=== PATIENT | female | born 1990 | race Caucasian/White ===

== ENCOUNTER 2022-08-16 08:40 | Outpatient (CLI) | payer OTHER, SELFPAY | END 2022-08-16 08:41 | disposition home or self-care (01) | LOC: NFLDREF 20:44 | PROVIDERS: Visit Provider Registered Nurse | DX: Z13.1 Encounter for screening for diabetes mellitus (principal); Z13.6 Encounter for screening for cardiovascular disorders | CPT/HCPCS: 80061; 82947 ==

== ENCOUNTER 2022-12-19 13:58 | Outpatient (CLI) | payer OTHER, SELFPAY ==
--- NOTE | 2022-12-19 14:00 | CRLHL7_ITS ---
For Patients: As a result of the Cures Act, medical imaging exams and procedure reports are released immediately into your electronic medical record. You may view this report before your referring provider. If you have questions, please contact your health care provider. INDICATION: First trimester scan, establish dates. COMPARISON: None. TECHNIQUE: Real-time sanford-scale imaging of the pelvis was performed. FINDINGS: Sonographic imaging demonstrates a single living intrauterine gestation. The embryo demonstrates a regular cardiac rate measuring 180 beats per minute. The embryo`s crown-rump length measurement of 2.1 cm corresponds to a gestational age of 8 weeks 5 days with a sonographic due date of 07/26/2023. There is a normal-appearing yolk sac. There are no gross abnormalities noted within the embryo at this early state of development. The gestational sac has a normal appearance. There is a 1.4 x 0.6 x 0.5 cm perigestational hemorrhage. The amount of fluid within the sac appears appropriate for gestational age. The cervix is closed. The myometrium appears normal. The ovaries are of normal size. Corpus luteal left ovarian cyst. There are no suspicious fluid collections noted in the cul-de-sac. IMPRESSION: Single living intrauterine with sonographic gestational age 8 weeks 5 days and sonographic due date of 07/26/2023. 1.4 x 0.6 x 0.5 cm inferior subchorionic hemorrhage. Dictated by Kenny Heart MD @ 12/20/2022 9:57:43 AM (Electronically Signed)
== END 2022-12-19 13:59 | disposition home or self-care (01) ==
LOC: US 13:59
PROVIDERS: Visit Provider Registered Nurse
DX: Z34.91 Encounter for supervision of normal pregnancy, unspecified, first trimester (principal); O20.9 Hemorrhage in early pregnancy, unspecified; Z3A.08 8 weeks gestation of pregnancy
CPT/HCPCS: 76817; 86703; 86803; 86850; 86900; 86901; 87086; 87340; 87491; 87591

== ENCOUNTER 2022-12-19 15:09 | Outpatient (CLI) | payer OTHER, SELFPAY ==
[2022-12-19 19:04] LABS: Chlamydia DNA Amplified* NOT DETECTED (No Detected); GC DNA Amplified* NOT DETECTED (No Detected)
== END 2022-12-19 15:10 | disposition home or self-care (01) ==
PROVIDERS: Visit Provider Registered Nurse
DX: Z34.90 Encounter for supervision of normal pregnancy, unspecified, unspecified trimester (principal)
CPT/HCPCS: 86592; 86703; 86762; 86787; 86803; 86850; 86900; 86901; 87086; 87340; 87491; 87591

== ENCOUNTER 2023-03-13 12:55 | Outpatient (CLI) | payer OTHER, SELFPAY ==
--- NOTE | 2023-03-13 13:00 | CRLHL7_ITS ---
For Patients: As a result of the Century Cures Act, medical imaging exams and procedure reports are released immediately into your electronic medical record. You may view this report before your referring provider. If you have questions, please contact your health care provider. INDICATION: Evaluate anatomy. COMPARISON: none TECHNIQUE: Real time sanford scale imaging of the fetus was performed as well as color Doppler analysis of the umbilical vessels. FINDINGS: Sonographic imaging demonstrates a single living intrauterine gestation. Fetus demonstrates a regular cardiac rate of 154 beats per minute. Fetus has a breech position. The placenta lies anteriorly without evidence of placenta previa. The edge of the placenta is located 9.3 cm from the internal cervical os. Amniotic fluid volume appears normal. Single deepest vertical pocket: 4.8 cm. The cervix is closed and measures 4.1 cm in length. The composite ultrasound gestational age is calculated at 21 weeks 4 days with an estimated sonographic due date of 07/20/2023. The estimated weight is 449 grams which lies at the 96th %. The following biometric measurements were obtained: Biparietal diameter: 5.2 cm/21 weeks 4 days 86th% Head circumference: 18.7 cm/21 weeks 0 days 63rd% Abdominal circumference: 17.2 cm/22 weeks 1 day 89th% Femur length: 3.6 cm/21 weeks 3 days 72nd% The HC/AC ratio measures: 1.09 range (1.06-1.24) On anatomic survey, there is a normal appearance of the cerebral ventricles, cavum septi pellucidi, cisterna magna and cerebellum. The nose, lips, and facial profile appear normal. The cervical, thoracic and lumbar spine are well visualized and appear normal. There is a normal four-chamber heart view and the left and right ventricular outflow tracts appear normal. The diaphragm and stomach appear normal. The kidneys and bladder also appear normal. Incidental mild bilateral pelviectasis noted measuring less than 4 millimeters considered normal. There is a normal three-vessel cord and cord insertion site. The four extremities appear normal. IMPRESSION: Sonographic gestational age 21 weeks 4 days and sonographic due date of 07/20/2023. Sonographic age 1 week ahead of the clinical age. No intrinsic abnormalities noted on anatomic survey. Estimated weight 96th percentile. Abdominal circumference at the 89th percentile. Dictated by Kenny Heart MD @ 03/14/2023 10:02:52 AM (Electronically Signed)
== END 2023-03-13 12:56 | disposition home or self-care (01) ==
LOC: US 12:56
PROVIDERS: Visit Provider Registered Nurse
DX: Z34.92 Encounter for supervision of normal pregnancy, unspecified, second trimester (principal); Z3A.21 21 weeks gestation of pregnancy
CPT/HCPCS: 76805

== ENCOUNTER 2023-05-08 10:14 | Outpatient (CLI) | payer OTHER, SELFPAY | END 2023-05-08 10:15 | disposition home or self-care (01) | LOC: NFLDREF 05-10 05:57 | PROVIDERS: Visit Provider Obstetrics & Gynecology | DX: Z34.93 Encounter for supervision of normal pregnancy, unspecified, third trimester (principal); Z3A.28 28 weeks gestation of pregnancy | CPT/HCPCS: 86592 ==

== ENCOUNTER 2023-07-01 13:48 | Outpatient (CLI) | payer OTHER, SELFPAY ==
--- NOTE | 2023-07-01 14:00 | US_ITS ---
Final Report Patient: CLARISSA WALTON Facility:?[facility] Patient ID:?[id number] Site Patient ID:?[id number]. Site :?[id number] Study:? OB Pelvis growth check-07/01/2023 2:50:26 PM Ordering Physician:JULITA Final Report: INDICATION: Third trimester scan, evaluate growth. COMPARISON: 03/13/2023 TECHNIQUE: Real time sanford scale imaging of the fetus was performed. FINDINGS: Sonographic imaging demonstrates a single living intrauterine gestation. Fetus demonstrates a regular cardiac rate of 154 beats per minute. Fetus has a vertex position. The placenta lies anteriorly. Amniotic fluid volume appears normal and there is a single deepest vertical pocket: 6.2 cm. The estimated weight is 3901gm which lies at the greater than 97th %. On the prior OB ultrasound exam dated 03/13/2023 the estimated weight was at the 96th%. BPD greater than 97th percentile. HC 92nd percentile. AC greater than 97th percentile. FL is 50th percentile. The HC/AC ratio measures 0.92 range (0.87-1.06). IMPRESSION: Sonographic gestational age 39 weeks 1 day and sonographic due date of 07/07/2023. Sonographic age 20 days ahead of the clinical age. Estimated weight greater than 97th percentile. Abdominal circumference and BPD greater than 97th percentile. Dictated by Kenny Heart MD @ 07/02/2023 8:11:24 AM (Electronic Signature)
== END 2023-07-01 13:49 | disposition home or self-care (01) ==
LOC: US 13:48
PROVIDERS: Visit Provider Obstetrics & Gynecology
DX: Z34.93 Encounter for supervision of normal pregnancy, unspecified, third trimester (principal); O36.63X0 Maternal care for excessive fetal growth, third trimester, not applicable or unspecified; Z3A.39 39 weeks gestation of pregnancy
CPT/HCPCS: 76816; 87081; 87653

== ENCOUNTER 2023-07-19 09:51 | Inpatient (IN) | payer OTHER, SELFPAY ==
[2023-07-19] VITALS (32 sets, daily range): BP systolic 110–136; BP diastolic 65–95; PULSE 82–107; RESP 16–18; TEMP 36.7–38.2; O2SAT 96–98; BMI 31.4
[2023-07-19 10:12] LABS: Basophils Absolute Auto 0.04 K/uL (0.00-0.30); Basophils Percent Auto 0.4 % (0.0-3.0); Eosinophils Absolute Auto 0.01 K/uL (0.00-0.50); Eosinophils Percent Auto 0.1 % (0.0-7.0); Hemoglobin* 13.4 gm/dL (12.0-16.0); Immature Granulocytes Abs Auto 0.04 K/uL (0.00-0.30); Immature Granulocytes Pct Auto 0.4 %; Lymphocytes Percent Auto 13.2 % (20-44); Mean Corpuscular HGB Conc 34 gm/dL (32-36); Mean Corpuscular Hemoglobin 31 pg (26-34); Mean Corpuscular Volume 89 fL (80-100); Monocytes Percent Auto 4.2 % (0.0-11.0); Neutrophils Percent Auto 81.7 % (42.0-72.0); Platelet Count* 177 K/uL (140-440); RDW Coefficient of Variation % 12.1 % (11.5-15.5); Red Blood Count 4.37 m/uL (4.00-5.20); White Blood Count* 10.16 K/uL (4.50-11.00)
--- NOTE | 2023-07-19 10:12 | W.PM.LDBA ---
Subjective History of Present Illness Narrative: Patient is being admitted to Labor and Delivery for repeat delivery. She is a 32 year old at 38 6/7 weeks gestation. Her full history and physical was dictated by Dr. PUENTE on 07/10/23. Please see this for details. Patient presents to L&D due to concerns of painful uterine contractions. She also noticed a bloody show, no watery like discharge. Upon evaluation in the unit patient is found with regular, painful uterine contractions. Cervix found 4cm, in labor. Patient desires to proceed with repeat delivery. Specific Issues/Plans G 2 P 1001 Spouse: Noel. It's a GIRL! H&P by CINDI on 07/10/2023 1. History of delivery due to arrest of dilation. endometritis requiring IV antibiotics. Uncertain whether she desires repeat versus TOLAC. 55% likelihood of success TOLAC consent given for her review 01/16/23 36 week ultrasound: waiting to see what the EFW is. If the baby is large planning RLTCS at 39 weeks. If normal size then still RLTCS but at her due date or later. EFW at 36.2 weeks on 07/01: 3901g which is >97%tile, AC >97%tile. SDP 6.2 cm. Patient opted for repeat CD. Scheduling form filled out on 07/01 2. [id number] Negative. Covid: not vaccinated. Recommended. Flu Vaccine: Declines RSV: Declined on 06/05/23 TDAP: 05/22/2023 OB - Problem Based A/P Additional Plan (1) Previous delivery affecting : Status: Acute (2) : Status: Acute Plan Patient with previous section history, in labor and desiring repeat delivery. Patient had scheduled repeat scheduled for next week, informed consent already signed. Will proceed with delivery at this time. OB Result Labs Labs: CBC pending OB Exam Physical Exam Vital signs: Temp Pulse BP Pulse Ox 98.8 F 93 128/85 97 07/19/23 09:37 07/19/23 09:37 07/19/23 09:37 07/19/23 09:38 Detailed Labor and Delivery Exam Patient Gravid: Yes Dilation (cm): 4 Tachysystole: No Contraction intensity: Strong/Firm Fetus (Single) Station: -3 Amniotic Membrane Status: intact Heart Rate Baseline: 150 Monitor Accelerations: Present Monitor Decelerations: Variable [employer] Variability: Moderate (6-25)
[2023-07-19 10:18] LABS: Slide Review Reflex No
[2023-07-19] MEDS: CEFAZOLIN 2 GM INJ IVP (10:40)
[2023-07-19] MEDS: KETOROLAC 30 MG/ML inj IVP ×3 (10:45→22:53)
--- NOTE | 2023-07-19 10:59 | W.ANESCHARGE ---
Anesthesia Charges Start Date/Time Anesthesia Start Date: 07/19/23 Anesthesia Start Time: 10:30 Stop Date/Time Anesthesia Stop Date: 07/19/23 Anesthesia Stop Time: 12:02 Summary Emergency: MDA
[2023-07-19] MEDS: LACTATED RINGERS 1000 ML 1,000 ML 100 ML IV (11:00)
--- NOTE | 2023-07-19 11:00 | W.PM.NB ---
Nerve Block Nerve Block Time Seen by Provider: 11:52 Date Seen: 07/19/23 Type of block requested by surgeon for post-operative analgesia: TAP Side: bilateral Time out performed: Yes Verification of patient name: Yes Verification of date of : Yes Site marking: site marked Name of person performing procedure: Luis Eduardo Continuous monitoring Was continuous monitoring of O2 sat, B/P, monitor technician, recorded every 15 minutes?: Yes Procedure Checklist: sterile prep, needles and gloves Ultrasound guided. Images saved: Yes Medications given in 5ml increments after negative aspiration: Marcaine %: 0.25 mL: 30 Needle gauge: 20 and Exparel mL: 10 Patient tolerated procedure well: Yes Additional comments: Needle noted between internal oblique and transversus abdominus. Local spread visualized Block Charges Block Charge (with Pro Fee): TAP Bilateral Use of Ultrasound Machine for Block: Yes- US Guidance/pain block
[2023-07-19] MEDS: miSOPROStoL 800 MCG/4 TABLET PR (11:05)
--- NOTE | 2023-07-19 11:41 | PM.OBPRCCS ---
OB Delivery Proc Additional Procedures Tubal Ligation at the time of : No Other: No Procedure Date of procedure: 07/19/23 Pre-op diagnosis: Previous section x1, in labor desiring repeat section Post-op diagnosis: same Procedure Done: Global Will [facility] bill your pro fee for this procedure?: Yes Blood Loss Measurement Type: QBL (454) Bakri Used: No IV fluids (mL): 1,400 Urine Output (mL): 50 Urine Output Comment: concentrated urine Surgeon: Anay Sandy MD Anesthesia Type: Spinal Findings: FINDINGS: Live-born female infant, vertex presentation, Apgars 9 and 9 at 1 and 5 minutes respectively. weight 8 lb 9 oz. Bilateral small 1-2cm in size paratubal cysts. Otherwise grossly normal fallopian tubes and ovaries. Procedure Name: Repeat low transverse section Procedure Description: PROCEDURE: After obtaining informed consent, the patient was taken to the operating room where spinal anesthesia was obtained and found to be adequate. She was prepared and draped in the normal sterile fashion in the dorsal supine position with a leftward tilt. A Pfannenstiel skin incision was made with a scalpel along the line of the patient's previous Pfannenstiel scar. This incision was carried down to the underlying layer of fascia with the scalpel and Bovie. The fascia was incised in the midline and the incision extended laterally. The superior and inferior aspects of the fascial incision were grasped with Gail clamps, elevated and the underlying rectus muscles dissected off sharply and with electrocautery. The rectus muscles were then in the midline. The Pablo O retractor was then placed into the incision. The lower uterine segment was then incised in a transverse fashion with the scalpel. Upon entry into the uterus, clear amniotic fluid was noted. The uterine incision was extended cephalo caudally with blunt finger fractionation. The infant's head was delivered atraumatically, followed by the remainder of the 's body. The nose and mouth were suctioned with the bulb suction. The cord was doubly clamped and cut, after 30 seconds of delayed cord clamping and the infant was handed off the field for evaluation. The placenta was delivered spontaneously with umbilical cord traction and fundal massage. The uterus was cleared of all clots and debris. Uterine tone found to be boggy and treated with IV Oxytocin 30 units and 800mcg of rectal Cytotec. The uterine incision was reapproximated in a running locking fashion with a 0 Vicryl suture. A 2nd layer of the same suture was used to imbricate in horizontal fashion. Hemostasis secured. The gutters were inspected and cleared of blood clots. All instruments and retractors were removed. The anterior peritoneum was reapproximated in a running fashion with a 3-0 Vicryl suture. The subfascial tissues were carefully inspected and hemostasis assured. The fascia was reapproximated in a running fashion with a looped 0 Vicryl suture. The subcutaneous tissues were copiously irrigated. Hemostasis was assured. The subcutaneous fat layer was reapproximated with interrupted sutures of 3-0 Vicryl. The skin was closed in a subcuticular fashion with 4-0 Monocryl. LiquiBand and dressing were applied. The patient tolerated the procedure well. Sponge, lap, needle, and instrument counts were reported as correct x2. The patient was taken to the recovery room, awake, and in stable condition. She did receive 2 grams of IV Ancef preoperatively. Complications: None Pathology: none sent Surgery Debrief Performed: Yes Condition: stable Disposition: floor
--- NOTE | 2023-07-19 12:10 | W.ANESCHARGE ---
Anesthesia Charges Start Date/Time Anesthesia Start Date: 07/19/23 Anesthesia Start Time: 10:30 Stop Date/Time Anesthesia Stop Date: 07/19/23 Anesthesia Stop Time: 12:02 Summary Emergency: MDA
[2023-07-19] MEDS: ACETAMINOPHEN 500 MG TABLET 1000 MG PO ×2 (15:12→21:21)
[2023-07-19] MEDS: AMPICILLIN 2 GM in 0.9 % SODIUM CHLORIDE Mini-bag 100 ML IVPB ×2 (15:13→21:21)
[2023-07-19] MEDS: LACTATED RINGERS 1000 ML 1,000 ML 125 ML IV (15:21)
[2023-07-19] MEDS: CLINDAMYCIN 900 MG/50 ML-D5W 900 MG/50 ML PIGGYBACK 100 MG IVPB ×2 (16:11→23:21)
[2023-07-19] MEDS: SODIUM CHLORIDE 0.9% IVPB (16:43)
[2023-07-19] MEDS: GENTAMICIN IVPB (16:43)
[2023-07-20] VITALS (16 sets, daily range): BP systolic 107–128; BP diastolic 69–81; PULSE 80; RESP 16; TEMP 36.7–36.9; O2SAT 96–97
[2023-07-20] MEDS: AMPICILLIN 2 GM in 0.9 % SODIUM CHLORIDE Mini-bag 100 ML IVPB ×2 (03:20→09:15)
[2023-07-20] MEDS: ACETAMINOPHEN 500 MG TABLET 1000 MG PO ×3 (03:33→15:24)
[2023-07-20] MEDS: KETOROLAC 30 MG/ML inj IVP ×3 (05:15→18:04)
[2023-07-20 06:36] LABS: Hemoglobin* 12.2 gm/dL (12.0-16.0)
[2023-07-20] MEDS: CLINDAMYCIN 900 MG/50 ML-D5W 900 MG/50 ML PIGGYBACK 100 MG IVPB (07:20)
[2023-07-20] MEDS: DOCUSATE SODIUM 100 MG CAPSULE PO (09:15)
--- NOTE | 2023-07-20 10:05 | PM.OBPNVD1 ---
OB - PN:Subj Subjective Date Seen: 07/20/23 Interval history: Gilda is a 32-year-old G2 now P 2-0-0-2 woman who is status post repeat delivery in the setting of early labor on 07/19/2023 at 38 weeks, 6 days gestation. She had an uncomplicated repeat delivery and was delivered of a female infant. She had a history of endometritis after her 1st , and was diagnosed with the same yesterday afternoon. She was started on ampicillin, gentamicin and clindamycin. Her last elevated temperature was 100.8? at 2:33 p.m. on 07/19/2023. She was started on triple antibiotics at around 3:00 p.m. on that same day. Hemoglobin today is 12.2. There was no white count collected. Narrative: Gilda is feeling well. She is working on ; her daughter Annelise has not perfected her latch as of yet. Otherwise, Gilda has no complaints. Her pain was well controlled. She is ambulating and urinating without difficulty. She denies any heavy bleeding. She is tolerating a regular diet and passing flatus. OB - PN: Obj Exam Physical Exam: Vital signs: Temp Pulse Resp BP Pulse Ox O2 Del Method 98.2 F 80 16 115/78 96 Room Air 07/20/23 07:38 07/20/23 07:38 07/20/23 09:10 07/20/23 07:38 07/20/23 07:38 07/20/23 07:38 Narrative: General: Pleasant, no acute distress Heart: Regular rate and rhythm, no murmur or gallop Lungs: Clear to auscultation bilaterally Abdomen: Normoactive bowel sounds. Soft, nontender, fundus well below umbilicus. Dressing dry and intact, very small amount of dried blood noted in the midline. Lower extremities: No edema or erythema Urinary Catheter Management: Urethral: Cath placed during this visit: yes, but has since been removed by the nurse Reason for continuing: surgical procedure Insertion date: 07/19/23 Insertion time: 10:45 Removal date: 07/19/23 Removal time: 18:30 OB - PN: Obj Data Labs Labs: Laboratory Results - last 24 hr 07/19/23 07/20/23 10:00 06:28 WBC 10.16 RBC 4.37 Hgb 13.4 12.2 Hct 39.0 MCV 89 MCH 31 MCHC 34 RDW Coeff of Tobias 12.1 Plt Count 177 Neut % (Auto) 81.7 H Lymph % (Auto) 13.2 L [place] % (Auto) 4.2 Eos % (Auto) 0.1 Baso % (Auto) 0.4 Neut # (Auto) 8.30 H Lymph # (Auto) 1.30 [place] # (Auto) 0.40 Eos # (Auto) 0.01 Baso # (Auto) 0.04 Abs Immat Gran (auto) 0.04 Imm/Tot Granulo (auto) 0.4 Blood Type O Positive Antibody Screen NEGATIVE OB - PN: A/P Delivery Assessment and Plan (1) Status post repeat low transverse section: Status: Acute Assessment and Plan: Other than increased temperature yesterday, she has had unacceptable post operative course. We will maintain inpatient status until at least tomorrow, and anticipate discharge tomorrow or Saturday. (2) endometritis: Status: Acute Assessment and Plan: She has been afebrile since 1433 yesterday afternoon. Currently maintained on ampicillin, gentamicin, and clindamycin. I will obtain a complete blood count today. We will discontinue antibiotics at 3:00 p.m. if she remains afebrile. Plan day: 1 Plan: other
[2023-07-20 10:43] LABS: Basophils Percent Auto 0.4 % (0.0-3.0); Eosinophils Percent Auto 0.7 % (0.0-7.0); Hematocrit 36.3 % (33.0-51.0); Immature Granulocytes Pct Auto 0.3 %; Lymphocytes Percent Auto 15.3 % (20-44); Mean Corpuscular HGB Conc 33 gm/dL (32-36); Mean Corpuscular Hemoglobin 30 pg (26-34); Mean Corpuscular Volume 91 fL (80-100); Monocytes Percent Auto 8.4 % (0.0-11.0); Neutrophils Percent Auto 74.9 % (42.0-72.0); Platelet Count* 162 K/uL (140-440); RDW Coefficient of Variation % 12.4 % (11.5-15.5); White Blood Count* 11.81 K/uL (4.50-11.00)
[2023-07-20 10:46] LABS: Slide Review Reflex No
[2023-07-20] MEDS: IBUPROFEN 600 MG TABLET PO (22:24)
[2023-07-21] MEDS: ACETAMINOPHEN 500 MG TABLET 1000 MG PO ×2 (04:07→12:40)
[2023-07-21 04:42] LABS: Rapid Plasma Reagin (RPR) Non Reactive (Non Reactive)
[2023-07-21 04:45] VITALS: BP 120/78; PULSE 81; RESP 16; TEMP 36.8; O2SAT 96
[2023-07-21] MEDS: IBUPROFEN 600 MG TABLET PO (08:45)
[2023-07-21] MEDS: DOCUSATE SODIUM 100 MG CAPSULE PO (08:45)
[2023-07-21 09:50] VITALS: BP 135/92; PULSE 81; RESP 16; TEMP 36.6
--- NOTE | 2023-07-21 10:13 | P.DS_ITS ---
DS: Providers Provider Date Seen: 07/21/23 Date of admission: 07/19/23 09:51 Primary care physician: Not a Local Provider Admitting Clinician: Shirley Sandy MD Attending Physician on discharge: Jackelin Clinton MD Date of Discharge: 07/21/23 DS: Diagnosis Discharge Diagnosis (1) endometritis: Status: Acute (2) Status post repeat low transverse section: Status: Acute Exam Narrative: Exam Narrative: Physical exam: Vitals as noted above. General: No acute distress Psych: Alert and oriented x 3, full affect HEENT: Normocephalic, atraumatic Abdomen: NABS, soft, nontender, fundus well below umbilicus, incision clean/dry/intact Lower extremities: No edema or erythema Const: Vital Signs, click to edit/add: Vital Signs - 24 hr 07/20/23 10:10 07/20/23 14:59 07/20/23 20:18 Temperature 98.1 F 98.3 F Pulse Rate [Pulse Oximeter] 80 80 Respiratory Rate 16 16 16 Blood Pressure [Le ft Arm] 124/81 128/78 Pulse Oximetry 96 96 Oxygen Delivery Me thod Room Air Room Air 07/21/23 04:45 07/21/23 09:50 Temperature 98.2 F 97.9 F Pulse Rate [Pulse Oximeter] 81 81 Respiratory Rate 16 16 Blood Pressure [Le ft Arm] 120/78 135/92 H Pulse Oximetry 96 Oxygen Delivery Me thod Room Air OB - DS: Summary Hospital Course Hospital Course: Gilda is a 32-year-old G2 now P 2-0-0-2 woman who is status post repeat delivery in the setting of early labor on 07/19/2023 at 38 weeks, 6 days gestation. She had an uncomplicated repeat delivery and was delivered of a female infant. She had a history of endometritis after her 1st , and was diagnosed with the same the afternoon after her repeat . She was started on ampicillin, gentamicin and clindamycin. Her last elevated temperature was 100.8? at 2:33 p.m. on 07/19/2023. She was started on triple antibiotics at around 3:00 p.m. on that same day. She remained afebrile after initiation of antibiotics, and these were stopped on postoperative day 1. She had 2 diastolic blood pressures in the 90s, 1 on the day of and another on the morning of postoperative day 2. She had HELLP labs on postoperative day 2 which were entirely normal. She was discharged with plan to follow up in clinic for blood pressure check, and with instructions to check her blood pressure. . Peripartum Data Procedures: Procedures Operation Date: 07/19/23 10:15 Actual Procedure Side Surgeon p REPEAT LOW TRANSVERSE SECTION Shirley Sandy MD [place] Gender: Female Time Spent with Patient Time attestation: Total time spent providing and/or coordinating discharge services: Discharge Plan Discharge Disposition: Home, Self-Care Date of Admission: 07/19/23 09:51 Attending Provider on Discharge: Jackelin Clinton Primary Care Provider: Provider,Not a Local Condition: Stable Anticipated Discharge Date/Time: 07/21/23 10:17 Discharge Medications: New acetaminophen 500 mg Tablet 1,000 mg PO Q6H PRN (Reason: Pain) Qty: 0 0RF docusate sodium 100 mg Capsule 100 mg PO DAILY Qty: 30 0RF ibuprofen 600 mg Tablet 600 mg PO Q6H PRN (Reason: Pain) Qty: 60 0RF oxycodone 5 mg Tablet 5 - 10 mg PO Q4H PRN (Reason: Pain) Qty: 20 0RF Lanolin (HPA) 100 % Cream 1 applic topical Q1H PRNQty: 0 0RF Continued DHA 200 mg capsule 200 mg PO DAILY cholecalciferol (vitamin D3) 125 mcg (5,000 unit) capsule 125 mcg PO QDAY omega 0-kqc-cdo-fish oil 1,200 (144-216) mg capsule 1 cap PO DAILY Discharge Orders: Discharge Order (Routine); Ordered 07/21/23 Ordered By: Jackelin Clinton Patient Education: OB High Blood Pressure DC, OB Over the Counter Medication Information, OB /Breast Feeding Discharge Diet: Regular Follow Up Appointments: Jackelin Clinton MD [Staff Physician] - Provider,Not a Local [Primary Care Provider] - Forms: [employer] Info Instructions
[2023-07-21 10:18] VITALS: BP 124/86
[2023-07-21 10:45] LABS: Basophils Percent Auto 0.4 % (0.0-3.0); Eosinophils Percent Auto 1.1 % (0.0-7.0); Hematocrit 37.3 % (33.0-51.0); Hemoglobin* 12.4 gm/dL (12.0-16.0); Immature Granulocytes Pct Auto 0.3 %; Lymphocytes Percent Auto 12.8 % (20-44); Mean Corpuscular HGB Conc 33 gm/dL (32-36); Mean Corpuscular Hemoglobin 30 pg (26-34); Mean Corpuscular Volume 91 fL (80-100); Monocytes Percent Auto 5.5 % (0.0-11.0); Neutrophils Percent Auto 79.9 % (42.0-72.0); Platelet Count* 180 K/uL (140-440); RDW Coefficient of Variation % 12.6 % (11.5-15.5); Red Blood Count 4.08 m/uL (4.00-5.20); White Blood Count* 11.63 K/uL (4.50-11.00)
[2023-07-21 10:52] LABS: Alanine Aminotransferase* 17 U/L (4-35); Aspartate Amino Transferase* 30 U/L (12-35); Blood Urea Nitrogen* 12 mg/dL (5-24); Creatinine* 0.8 mg/dL (0.5-1.5); Est. Creatinine Clearance* 93.63; Estimated Glomerular Filt Rate 100 ml/min
[2023-07-21 10:55] LABS: Slide Review Reflex No
== END 2023-07-21 14:35 | disposition home or self-care (01) | DRG 787 ==
LOC: OB OUT 09:51 → OB 09:51
PROVIDERS: Obstetrics & Gynecology; Admitting Provider Obstetrics & Gynecology; Visit Provider Obstetrics & Gynecology
PROC: 10D00Z1 Extraction of Products of Conception, Low, Open Approach (ICD-10-PCS; CPT 59514; principal; 2023-07-19 10:00)
DX: O34.211 Maternal care for low transverse scar from previous cesarean delivery (principal); O86.12 Endometritis following delivery; Z3A.38 38 weeks gestation of pregnancy; Z37.0 Single live birth; G89.18 Other acute postprocedural pain
CPT/HCPCS: 01961; 36415; 64488; 76942; 82565; 84450; 84460; 84520; 85018; 85025; 86592; 86850; 86900; 86901; 99140; A9270; C9290; J0290; J0665; J0690; J0736; J1580; J1885; J2274; J2371; J2405; J2590; J2765; J7120

== ENCOUNTER 2023-08-02 10:32 | Outpatient (CLI) | payer OTHER, SELFPAY | END 2023-08-02 10:33 | disposition home or self-care (01) | PROVIDERS: Visit Provider Registered Nurse | DX: O13.5 Gestational [pregnancy-induced] hypertension without significant proteinuria, complicating the puerperium (principal) | CPT/HCPCS: 82565; 84450; 84460; 84520 ==

== ENCOUNTER 2024-08-28 09:59 | Outpatient (CLI) | payer OTHER, SELFPAY ==
--- NOTE | 2024-08-28 10:15 | CRLHL7_ITS ---
For Patients: As a result of the Cures Act, medical imaging exams and procedure reports are released immediately into your electronic medical record. You may view this report before your referring provider. If you have questions, please contact your health care provider. OB ULTRASOUND INDICATION: Dating and viability. TECHNIQUE: Real time grayscale imaging of the fetus was performed. Transvaginal. LMP: 07/01/2024. ALLY by LMP: 04/07/2025. GA: 8 w, 2 d. Previous US: No. CRL: 1.7 cm. 8 w 1 d. ALLY: 04/08/2025. FHR: 163 BPM. Gestational sac: 3.1 cm. Appears within normal limits. Yolk sac: 2.6 mm. Appears within normal limits. Right ovary: N/V. Left ovary: 2.5 x 1.3 x 2.3 cm. IMPRESSION: 1. Single living intrauterine with sonographic gestational age 8 weeks 1 day and sonographic due date 04/08/2025. 2. Anterior subchorionic hemorrhage measures 1.9 x 0.9 x 0.9 cm. Posterior subchorionic hemorrhage measures 1.6 x 0.8 x 0.3 cm. 3. Simple left parafallopian cyst measures 1.0 x 1.1 x 1.3 cm. Kenny Heart M.D. Diagnostic Radiologist [email or web address] STEPHANIE/[email or web address] [email or web address]/Dictated by: Kenny Heart MD @ 08/28/2024 11:37:00 AM (Electronically Signed)
== END 2024-08-28 10:00 | disposition home or self-care (01) ==
LOC: US 10:00
PROVIDERS: Visit Provider Physician Assistant
DX: Z34.91 Encounter for supervision of normal pregnancy, unspecified, first trimester (principal); O20.9 Hemorrhage in early pregnancy, unspecified; O34.81 Maternal care for other abnormalities of pelvic organs, first trimester; N83.292 Other ovarian cyst, left side; Z3A.08 8 weeks gestation of pregnancy
CPT/HCPCS: 76817; 82565; 82570; 83021; 84156; 84450; 84460; 84520; 86592; 86703; 86704; 86706; 86762; 86787; 86803; 86850; 86900; 86901; 87086; 87340; 87491; 87591

== ENCOUNTER 2024-09-16 12:59 | Outpatient (CLI) | payer OTHER, SELFPAY | END 2024-09-16 13:00 | disposition home or self-care (01) | LOC: NFLDREF 09-23 02:34 | PROVIDERS: Visit Provider Physician Assistant | DX: Z34.81 Encounter for supervision of other normal pregnancy, first trimester (principal) | CPT/HCPCS: 82570; 84156 ==

== ENCOUNTER 2025-01-15 09:42 | Outpatient (CLI) | payer OTHER, SELFPAY ==
--- NOTE | 2025-01-15 10:00 | CRLHL7_ITS ---
For Patients: As a result of the Century Cures Act, medical imaging exams and procedure reports are released immediately into your electronic medical record. You may view this report before your referring provider. If you have questions, please contact your health care provider. OB ULTRASOUND ALLY by LMP: 04/08/2025. GA: 28 w, 1 d. Single. Comparison: 08/28/2024. INDICATION: Chronic hypertension. TECHNIQUE: Real time grayscale imaging of the fetus was performed. Transabdominal. CERVIX: Not visualized. POSITIONING: Vertex. AMNIOTIC FLUID: 6.5 cm. SDP (N: greater than 2 x 1 cm) PLACENTA: Technique: Transabdominal. PLACENTA POSITION: Anterior. DOPPLER: heart rate: 167 bpm. BIOMETRY: BPD: 7.2 cm. 29 w, 0 d, 65 percent. HC: 27.2 cm. 29 w, 4 d, 66 percent. AC: 25.7 cm. 29 w, 6 d, 88 percent. FL: 5.4 cm. 28 w, 4 d, 47 percent. FL/AC ratio: 20.99 percent. HC/AC ratio: 1.06. EFW: 1376 g. Weight: 3 lbs, 1 oz. age by this US: 29 w, 5 d. ALLY by this US: 03/28/2025. Percentile by ALLY: 82%. IMPRESSION: 1. Sonographic gestational age 29 weeks 5 days and sonographic due date 03/28/2025. Sonographic age is 11 days ahead of the clinical age. 2. Estimated weight 82nd percentile. Abdominal circumference 88th percentile. Kenny Heart M.D. Diagnostic Radiologist [email or web address] STEPHANIE/[email or web address] [email or web address]/Dictated by: Kenny Heart MD @ 01/15/2025 12:35:00 PM (Electronically Signed)
== END 2025-01-15 09:43 | disposition home or self-care (01) ==
LOC: US 09:43
PROVIDERS: Visit Provider Obstetrics & Gynecology
DX: O10.913 Unspecified pre-existing hypertension complicating pregnancy, third trimester (principal); O36.63X0 Maternal care for excessive fetal growth, third trimester, not applicable or unspecified; Z3A.29 29 weeks gestation of pregnancy
CPT/HCPCS: 76816; 86592

== ENCOUNTER 2025-02-12 10:14 | Outpatient (CLI) | payer OTHER, SELFPAY ==
--- NOTE | 2025-02-12 10:15 | CRLHL7_ITS ---
For Patients: As a result of the Century Cures Act, medical imaging exams and procedure reports are released immediately into your electronic medical record. You may view this report before your referring provider. If you have questions, please contact your health care provider. OB ULTRASOUND ALLY by LMP: 04/08/2025. GA: 32 w, 1 d. Single. Comparison: Ultrasound 01/15/2025, 08/28/2024. INDICATION: Unspecified pre-existing HTN. TECHNIQUE: Real time grayscale imaging of the fetus was performed. Transabdominal. CERVIX: Not visualized. POSITIONING: Vertex. AMNIOTIC FLUID: 4.4 cm. SDP (N: greater than 2 x 1 cm) BIOPHYSICAL PROFILE: 2: Gross body movements 2: tone 2: Respiratory activity 2: Amniotic fluid SDP (N: greater than 2 x 1 cm) 8/8: Total score PLACENTA: Technique: Transabdominal. PLACENTA POSITION: Anterior. DOPPLER: heart rate: 161 bpm. BIOMETRY: BPD: 8.2 cm. 33 w, 1 d, 71%. HC: 30.6 cm. 34 w, 0 d, 64%. AC: 30.9 cm. 34 w, 6 d, >97%. FL: 6.1 cm. 31 w, 5 d, 26%. FL/AC ratio: 19.75%. HC/AC ratio: 0.99. EFW: 2270g. Weight: 5 lbs., 0 oz. age by this US: 33 w, 3 d. ALLY by this US: 03/30/2025. Percentile by ALLY: 87%. IMPRESSION: 1. Normal biophysical profile score 8/8. 2. Sonographic gestational age 33 weeks 3 days and sonographic due date 03/30/2025. Sonographic age is 9 days ahead of the clinical age. 3. Estimated weight 87th percentile. Abdominal circumference greater than 97th percentile. Decreased FL/AC ratio. Kenny Heart M.D. Diagnostic Radiologist [email or web address] STEPHANIE/[email or web address] [email or web address]/Dictated by: Kenny Heart MD @ 02/12/2025 10:50:00 AM (Electronically Signed)
== END 2025-02-12 10:15 | disposition home or self-care (01) ==
LOC: US 10:14
PROVIDERS: Visit Provider Obstetrics & Gynecology
DX: O10.913 Unspecified pre-existing hypertension complicating pregnancy, third trimester (principal); O36.63X0 Maternal care for excessive fetal growth, third trimester, not applicable or unspecified; Z3A.32 32 weeks gestation of pregnancy
CPT/HCPCS: 76816; 76819; 82565; 82570; 84156; 84450; 84460

== ENCOUNTER 2025-02-19 09:22 | Outpatient (CLI) | payer OTHER, SELFPAY ==
--- NOTE | 2025-02-19 09:15 | CRLHL7_ITS ---
For Patients: As a result of the Cures Act, medical imaging exams and procedure reports are released immediately into your electronic medical record. You may view this report before your referring provider. If you have questions, please contact your health care provider. OBSTETRICAL ULTRASOUND ??? BIOPHYSICAL PROFILE INDICATION: Chronic hypertension. Biophysical profile. CLINICAL HISTORY: ALLY by LMP: 04/08/2025 Gestational Age: 33 weeks 1 day Surgery: None COMPARISON: Biophysical profile 02/12/2025 TECHNIQUE: Real-time sanford-scale transabdominal imaging of the fetus was performed. FINDINGS: Fetus: Single Cervix: Not visualized positioning: Vertex Amniotic Fluid: 5.5 cm SDP BIOPHYSICAL PROFILE: Gross body movements: 2 tone: 2 Respiratory activity: 2 Amniotic fluid SDP: 2 Total score: 8 Placenta technique: Transabdominal Placenta position: Anterior heart rate: 146 bpm IMPRESSION: Normal biophysical profile score of 8/8. KENNY TYLER M.D. Diagnostic Radiologist [email or web address] Transcribed: 11:[address]/Dictated by: Kenny Tyler MD @ 02/19/2025 10:28:00 AM (Electronically Signed)
== END 2025-02-19 09:23 | disposition home or self-care (01) ==
LOC: US 09:23
PROVIDERS: Visit Provider Obstetrics & Gynecology
DX: O10.913 Unspecified pre-existing hypertension complicating pregnancy, third trimester (principal); Z3A.33 33 weeks gestation of pregnancy
CPT/HCPCS: 76819; 82565; 82570; 84156; 84450; 84460

== ENCOUNTER 2025-02-26 13:58 | Outpatient (CLI) | payer OTHER, SELFPAY ==
--- NOTE | 2025-02-26 14:00 | CRLHL7_ITS ---
For Patients: As a result of the Cures Act, medical imaging exams and procedure reports are released immediately into your electronic medical record. You may view this report before your referring provider. If you have questions, please contact your health care provider. OBSTETRICAL ULTRASOUND ??? BIOPHYSICAL PROFILE INDICATION: Chronic hypertension. CLINICAL HISTORY: ALLY by LMP: 04/08/2025 Gestational Age: 34 weeks 1 day COMPARISON: 02/19/2025, 02/12/2025. TECHNIQUE: Real-time sanford-scale transabdominal imaging of the fetus was performed. FINDINGS: Fetus: Single Cervix: Not visualized positioning: Vertex Amniotic Fluid: 4.4 cm SDP BIOPHYSICAL PROFILE: Gross body movements: 2 tone: 2 Respiratory activity: 2 Amniotic fluid SDP: 2 Total score: 8 Placenta technique: Transabdominal Placenta position: Anterior heart rate: 157 bpm IMPRESSION: Normal biophysical profile score of 8/8. KENNY TYLER M.D. Diagnostic Radiologist [email or web address] Transcribed: 11:[address]/Dictated by: Kenny Tyler MD @ 03/01/2025 11:17:00 AM (Electronically Signed)
== END 2025-02-26 13:59 | disposition home or self-care (01) ==
PROVIDERS: Visit Provider Obstetrics & Gynecology
DX: O10.913 Unspecified pre-existing hypertension complicating pregnancy, third trimester (principal); Z3A.34 34 weeks gestation of pregnancy
CPT/HCPCS: 76819; 82565; 82570; 84156; 84450; 84460

== ENCOUNTER 2025-03-05 13:17 | Outpatient (CLI) | payer OTHER, SELFPAY ==
--- NOTE | 2025-03-05 13:15 | CRLHL7_ITS ---
For Patients: As a result of the Century Cures Act, medical imaging exams and procedure reports are released immediately into your electronic medical record. You may view this report before your referring provider. If you have questions, please contact your health care provider. ALLY by LMP: 04/08/2025. GA: 35w, 1d. Single. Comparisons: Ultrasound 02/26/2025, 02/19/2025, 02/12/2025. INDICATION: Pre-existing hypertension. CERVIX: Not visualized. POSITIONING: Vertex. AMNIOTIC FLUID: 3.5 cm SDP. BIOPHYSICAL PROFILE: Total score: 8. Gross body movements: 2. tone: 2. Respiratory activity: 2. Amniotic fluid: 2. (SDP N: Increase 2 x 1 cm) PLACENTA: Technique: Transabdominal. PLACENTA POSITION: Anterior. DOPPLER: heart rate: 161 bpm. IMPRESSION: 1. Normal biophysical profile 12/18. 2. The stomach is distended and measures 4.5 cm and appears to contain intraluminal debris. Kenny Heart M.D. Diagnostic Radiologist [email or web address] bM/Dictated by: Kenny Heart MD @ 03/05/2025 4:35:00 PM (Electronically Signed)
== END 2025-03-05 13:18 | disposition home or self-care (01) ==
LOC: US 13:17
PROVIDERS: Visit Provider Obstetrics & Gynecology
DX: O10.913 Unspecified pre-existing hypertension complicating pregnancy, third trimester (principal); Z3A.35 35 weeks gestation of pregnancy
CPT/HCPCS: 76819; 82565; 82570; 84156; 84450; 84460; 87081; 87653

== ENCOUNTER 2025-03-05 14:09 | Outpatient (CLI) | payer OTHER, SELFPAY ==
[2025-03-06 19:58] LABS: Strep B DNA Probe POSITIVE (Negative)
[2025-03-06 21:54] LABS: Strep B Susceptibility Needed? No
== END 2025-03-05 14:10 | disposition home or self-care (01) ==
LOC: NFLDREF 14:09
PROVIDERS: Visit Provider Obstetrics & Gynecology
DX: O10.913 Unspecified pre-existing hypertension complicating pregnancy, third trimester (principal); Z3A.35 35 weeks gestation of pregnancy
CPT/HCPCS: 82565; 82570; 84156; 84450; 84460; 87081; 87653

== ENCOUNTER 2025-03-11 13:00 | Outpatient (CLI) | payer OTHER, SELFPAY ==
--- NOTE | 2025-03-11 13:11 | CRLHL7_ITS ---
For Patients: As a result of the Century Cures Act, medical imaging exams and procedure reports are released immediately into your electronic medical record. You may view this report before your referring provider. If you have questions, please contact your health care provider. OB ULTRASOUND ALLY by LMP: 04/08/2025. GA: 36 w, 0 d. Single. Comparison: 03/05/2025, 02/26/2025, 02/19/2025. INDICATION: Pre-existing hypertension. TECHNIQUE: Real time grayscale imaging of the fetus was performed. Transabdominal. CERVIX: Not visualized. POSITIONING: Vertex. AMNIOTIC FLUID: 4.7 cm. SDP (N: greater than 2 x 1 cm) BIOPHYSICAL PROFILE: 2: Gross body movements 2: tone 2: Respiratory activity 2: Amniotic fluid SDP (N: greater than 2 x 1 cm) 8/8: Total score PLACENTA: Technique: Transabdominal. PLACENTA POSITION: Anterior. DOPPLER: heart rate: 178-181 bpm. BIOMETRY: BPD: 8.9 cm. 36 w, 1 d, 62.6%. HC: 33.1 cm. 37 w, 5 d, 60.6%. AC: 34.4 cm. 38 w, 2 d, >97%. FL: 7.0 cm. 35 w, 5 d, 36.2%. FL/AC ratio: 20.2%. HC/AC ratio: 0.96. EFW: 3187g. Weight: 7 lbs., 0 oz. age by this US: 37 w, 0 d. ALLY by this US: 04/01/2025. Percentile by ALLY: 85.2%. IMPRESSION: 1. Sonographic gestational age 37 weeks 0 days with sonographic due date 04/01/2025. Sonographic age is 1 week ahead of the clinical age. 2. Estimated weight 85th percentile. Abdominal circumference greater than 97th percentile. 3. The stomach is less distended than compared to the prior study and no debris noted. Also, the bladder appears to diminish during the course of the study. Kenny Heart M.D. Diagnostic Radiologist [email or web address] STEPHANIE/[email or web address]/Dictated by: Kenny Heart MD @ 03/11/2025 2:12:00 PM (Electronically Signed)
== END 2025-03-11 13:01 | disposition home or self-care (01) ==
LOC: US 13:00
PROVIDERS: Visit Provider Obstetrics & Gynecology
DX: O10.913 Unspecified pre-existing hypertension complicating pregnancy, third trimester (principal); O36.63X0 Maternal care for excessive fetal growth, third trimester, not applicable or unspecified; Z3A.36 36 weeks gestation of pregnancy
CPT/HCPCS: 76816; 76819; 82565; 82570; 84156; 84450; 84460

== ENCOUNTER 2025-03-12 10:28 | Outpatient (CLI) | payer OTHER, SELFPAY | END 2025-03-12 10:29 | disposition home or self-care (01) | LOC: NFLDREF 03-15 18:36 | PROVIDERS: Visit Provider Obstetrics & Gynecology | DX: O10.913 Unspecified pre-existing hypertension complicating pregnancy, third trimester (principal) | CPT/HCPCS: 82565; 82570; 84156; 84450; 84460; 84520 ==

== ENCOUNTER 2025-03-13 09:13 | Outpatient (CLI) | payer OTHER, SELFPAY ==
[2025-03-13] VITALS (10 sets, daily range): BP systolic 106–128; BP diastolic 66–74; PULSE 82–94; RESP 16; TEMP 37.1; O2SAT 97–98
[2025-03-13 09:42] LABS: Hematocrit* 39.7 % (33.0-51.0); Hemoglobin* 13.8 gm/dL (12.0-16.0); Mean Corpuscular HGB Conc 35 gm/dL (32-36); Mean Corpuscular Hemoglobin 31 pg (26-34); Mean Corpuscular Volume 89 fL (80-100); Red Blood Count* 4.48 m/uL (4.00-5.20); White Blood Count* 6.86 K/uL (4.50-11.00)
[2025-03-13 09:45] LABS: Slide Review Reflex No
[2025-03-13 09:53] LABS: Alanine Aminotransferase* 44 U/L (4-35); Aspartate Amino Transferase* 36 U/L (12-35); Blood Urea Nitrogen* 8 mg/dL (5-24); Creatinine* 0.6 mg/dL (0.5-1.5); Estimated Glomerular Filt Rate 120 ml/min
[2025-03-13 10:06] LABS: Protein Creatinine Ratio Urine 0.76 (0-0.19)
--- NOTE | 2025-03-16 07:57 | PC.OBNST ---
NST Note NST Note Start: 03/13/25 09:21 Freq: ONCE Status: Discharge Protocol: Document 03/13/25 11:00 KANCHAN (Rec: 03/13/25 14:48 KANCHAN [id number]) NST Note 3 Para (# of births) 2 EDC 04/08/25 Gestational Age In 36 Weeks & 2 Days Weeks & Days High Risk Factors High Blood Pressure - Preexisting Patient Presented Other with Complaint(s) of Other Complaints Pt. here for pre-e labs, BP monitoring and NST Reactive Yes Appropriate for Yes Gestational Age TRAVIS Lott RN Date 03/13/25 Reactive Yes Appropriate for Yes Gestational Age TRAVIS Gu RN Date 03/13/25 OB NST charge Yes Complete NST Note Yes via Write Note The provider's electronic signature indicates the NST is reactive/appropriate for gestational age. *Note to provider: If an addendum is required, open the patient's chart and click on the note under the Nurse/Allied Health tab.
== END 2025-03-13 11:15 | disposition home or self-care (01) ==
LOC: OB CLI 09:14 → OB 09:20
PROVIDERS: Obstetrics & Gynecology; Visit Provider Obstetrics & Gynecology
DX: O10.913 Unspecified pre-existing hypertension complicating pregnancy, third trimester (principal); Z3A.36 36 weeks gestation of pregnancy
CPT/HCPCS: 36415; 59025; 82565; 82570; 84156; 84450; 84460; 84520; 85027; G0463

== ENCOUNTER 2025-03-18 05:46 | Inpatient (IN) | payer OTHER, SELFPAY ==
[2025-03-18] VITALS (29 sets, daily range): BP systolic 103–134; BP diastolic 64–81; PULSE 74–87; RESP 12–20; TEMP 36.6–37.1; O2SAT 96–99; BMI 30.2
[2025-03-18] MEDS: LACTATED RINGERS 1000 ML 1,000 ML 900 ML IV (06:23)
[2025-03-18 07:06] LABS: Hematocrit* 38.7 % (33.0-51.0); Hemoglobin* 13.2 gm/dL (12.0-16.0); Immature Granulocytes Abs Auto 0.04 K/uL (0.00-0.30); Immature Granulocytes Pct Auto 0.5 %; Lymphocytes Absolute Auto 1.97 K/uL (0.90-2.90); Mean Corpuscular HGB Conc 34 gm/dL (32-36); Mean Corpuscular Hemoglobin 31 pg (26-34); Mean Corpuscular Volume 90 fL (80-100); RDW Coefficient of Variation % 11.8 % (11.5-15.5); Red Blood Count* 4.32 m/uL (4.00-5.20); White Blood Count* 7.44 K/uL (4.50-11.00)
[2025-03-18 07:09] LABS: Alanine Aminotransferase* 27 U/L (4-35); Aspartate Amino Transferase* 29 U/L (12-35); Blood Urea Nitrogen* 7 mg/dL (5-24); Creatinine* 0.6 mg/dL (0.5-1.5); Est. Creatinine Clearance* 122.51; Estimated Glomerular Filt Rate 120 ml/min
[2025-03-18] MEDS: LACTATED RINGERS 1000 ML 1,000 ML 125 ML IV (07:10)
[2025-03-18 07:13] LABS: Slide Review Reflex No
--- NOTE | 2025-03-18 07:18 | P.LDBA_ITS ---
Subjective History of Present Illness Time Seen by Provider: 07:18 Date Seen: 03/18/25 Narrative: Patient is being admitted to Labor and Delivery for scheduled repeat delivery. She is a 34 year old at 37.0 weeks gestation. Her full history and physical was dictated by Dr. Sandy on 03/05/25. Please see this for details. Active movement. Denies Ctx, LOF, vaginal bleeding or abnormal vaginal discharge. Denies any persistent headache, vision changes, SOB, right upper quadrant/epigastric pain, or rapidly expanding edema. Has recovered well from Norovirus. AST/ALT have completely normalized at . Blood pressure within normal limits this AM at 134/81. Specific Issues/Plans Partner: Noel. H&P: CGM 03/05/25 # Chronic hypertension on medication, history of gestational hypertension # Superimposed preE without SF - 24 hour urine 736 from 264 Baseline pre-E labs: pr/cr ratio 0.27H, o/w normal 24 urine for protein: 264 Started on nifedipine on 01/29 -Weekly preeclampsia labs with urine protein to creatinine ratio starting 32 weeks -Weekly testing beginning 32 weeks -Delivery 37 0/ - Dee to revise to 03/18 at 37w0d - consider BMZ if worsening maternal/ condition # AMA Genetic screening: Drawn on 09/25/2024. Low risk female. Negative carrier screen. Level 2 ultrasound: Normal anatomy # history of x2 * Desires repeat section with bilateral salpingectomy # Hx of endometritis with both of her deliveries Can consider 24 hours of antibiotic with this delivery # Hep B non-immune Imaging: - 11/23/2024: Level 2. Cephalic, anterior placenta without previa, three-vessel cord, normal fluid, EFW 74%, AC 86%, female, normal anatomy - 01/15/25: Vertex, EFW 82%, AC 88%, SDP 6.5 cm. - 02/12: Vertex. EFW 2270g at 87%ile - BPD 71%, HC 64%, AC >97%, FL 26%. MVP 4.4cm. /8 BPP. 03/11/2025: Cephalic, SDP 4.7 cm, EFW 85.2%, AC >97%, BPD 62.6%, HC 60.6%, FL 36.2%. Stomach is less distended than compared to prior study and no debris noted. Vaccinations: COVID:declines Flu:declines Tdap: declines RSV: declines 32 week mental health: 02/12/25 Last pap: 08/02/22 OB - Problem Based A/P Additional Plan (1) Pre-eclampsia superimposed on chronic hypertension: Status: Acute (2) , high-risk: Status: Acute (3) AMA (advanced maternal age) multigravida 35+: Status: Acute (4) Unwanted fertility: Status: Acute Plan - Reviewed consent form with patient. She has no additional questions - Hgb/plt: 13.2 gm/dL, 167 K/uL - T&S; O+, antibody negative - Will proceed with: Repeat delivery with bilateral salpingectomy OB Exam Physical Exam Vital signs: Temp Pulse BP 98.2 F 84 134/81 03/18/25 06:18 03/18/25 06:04 03/18/25 06:04 Narrative: Physical exam: General: No acute distress Psych: Alert and oriented x3, full affect HEENT: Normocephalic, atraumatic Lungs: Unlabored breathing Neuro: No focal deficit. Mentating appropriately Pelvic exam: Deferred
[2025-03-18 07:28] LABS: Protein Creatinine Ratio Urine 0.57 (0-0.19)
--- NOTE | 2025-03-18 07:34 | P.OBPRC_ITS ---
Procedure Will [facility] bill your pro fee for this procedure?: Yes Procedure Description: DELIVERY BY SECTION Date of Service: 04/08/25 Delivery time: 0752 Summary: Admitted for scheduled repeat delivery at 37.0 weeks due to superimposed preeclampsia, repeat lower uterine transverse section, bilateral salpingectomy, Pfannenstiel, Closed with sutures, QBL 420 cc, No complications, Findings: Moderate amount of adhesions of the anterior fascia to the rectus abdominus. Filmy intra-abdominal adhesions. Thin lower uterine segment. Otherwise, normal uterus, bilateral ovaries. Bilateral paratubal cyst noted. 7/9 Weight 3115 g. Primary Indication: 1. Previous delivery x2 2. Superimposed preeclampsia without severe features 3. Unwanted fertility Procedures: 1. Repeat lower uterine transverse section 2. Bilateral salpingectomy Specimens Removed: Placenta Surgeon: Dara Jones MD Diesel Locomotive Firer/Fireman: ARIAN Wu Anesthesia: Spinal and local Report: Prophylactic antibiotic, 2 g of Ancef was given before patient was taken to OR. After arrival to the operating room patient was placed in the supine position with left lateral tilt after administration of spinal anesthesia. She was prepped and draped in the usual sterile manner. Laparotomy A pfannenstiel incision was made through the anterior abdominal wall with #10 scalpel approximately 2 cm above the pubic symphysis. The incision was extended sharply with the #10 scalpel through the subcutaneous tissue to the level of fascia. The fascia was entered sharply with a #10 scalpel (Pfannenstiel) in the midline and extended in semi-elliptical fashion with Watson scissor. The underlying muscles were dissected off the overlying fascia by grasping the superior aspect of fascia with two gail clamps and blunt dissection was used along the midline. The fascia was further from rectus muscle with Watson scissor and/or cautery. Lysis of adhesions undertaken do to fascia being adhered to the muscle. In similar fashion, the lower aspect of fascia was also grasped with two Gail clamps and both blunt and sharp dissection was used to separate fascia from rectus muscle. The rectus muscles were in the midline bluntly with digits. The peritoneum was then entered bluntly. The peritoneal incision was then extended superiorly and inferiorly under direct visualization with care being taken to avoid bladder and bowel. Filmy adhesions were noted. The peritoneal incision was enlarged bluntly by lateral traction from the surgeon's and welder assistant's hand. Pablo retractor was inserted into the abdomen. Delivery A bladder flap was developed by grasping with Angolan forcep and enter with Metzenbaun scissor. Then sharp and blunt dissection with Metzenbaum scissor and fingers were performed. A low transverse hysterotomy was made then with #10 scalpel and extended laterally and cephalad with fingers in a low transverse fashion with Manu Godoy technique with care being taken to avoid injury to the fetus. The amniotic cavity (membrane) was then entered with spontaneous rupture of membrane, and the amniotic fluid was noted to be clear, fetus was delivered cephalic. With delivery of the baby, no extension was noted. Placenta was delivered spontaneously with steady traction on cord and manual separation of placenta from uterine wall. Closure Uterine cavity was cleaned after placental delivery with lap sponge x 2. The hysterotomy was closed in one layer using 0 vicryl with continuous locking stitches. Two [id number] placed in the middle the hysterotomy. Hemostasis was achieved as needed with electrocautery. The ovaries/tubes/uterine surface were evaluated. They were found to be as noted above. Pablo retractor removed. Maria G applied and hemostasis was confirmed again. Small area of bleeding noted on the right anterior rectus sheath superiorly, close to the convergence of the fascia. Allis used to isolate the bleeding area and running locking stitch applied using 2-0 vicryl. Perineum assessed on the intraabdominal side and not sutures noted to be coming through. Hemostasis achieved. Fascia was closed with running stitches using 0 looped PDS. Subcutaneous layer was irrigated. Hemostasis was checked for and found to be adequate. The subcutaneous layer was closed with running 2-0 vicryl sutures. A small subcentimeter keloid scar excised at the right Pfannenstiel edge prior to skin closure. The skin was closed with 4-0 monocryl subcuticular sutures . The incision was cleaned, Exofin applied, and Mepilex dressing placed. The procedure considered terminate at this time. Intraoperative Complications: None QBL: 420 cc Uterotonics/hemostatic agents: 40 u of pitocin, 1 g of TXA Disposition: The patient tolerated the procedure well. She was recovered in Obstetric PACU for close monitoring in stable condition, with a contracted uterus and normal transvaginal bleeding. The infant was sent to nursery due to needing CPAP. The placenta was sent to pathology due to diagnosis of superimposed preeclampsia. Debrief with OR team performed and specimen reviewed at the conclusion of the procedure.
[2025-03-18] MEDS: TRANEXAMIC ACID 100 MG/ML INJ 1000 MG IV (08:09)
--- NOTE | 2025-03-18 09:17 | P.ANES_ITS ---
Anesthesia Charges Start Date/Time Anesthesia Start Date: 03/18/25 Anesthesia Start Time: 07:19 Stop Date/Time Anesthesia Stop Date: 03/18/25 Anesthesia Stop Time: 09:07 Coding CPT Codes CPT Codes: ANESTH CS DELIVERY - 00747 ([id number]) P2 - PATIENT W/MILD SYST DISEASE, QK - DEVELOPING MACHINE OPERATOR 2-4 CNCRNT ANES PROC
--- NOTE | 2025-03-18 09:17 | W.ANESCHARGE ---
Anesthesia Charges Start Date/Time Anesthesia Start Date: 03/18/25 Anesthesia Start Time: 07:19 Stop Date/Time Anesthesia Stop Date: 03/18/25 Anesthesia Stop Time: 09:07 Coding CPT Codes CPT Codes: ANESTH CS DELIVERY - 84311 ([id number]) P2 - PATIENT W/MILD SYST DISEASE, QK - ORDER ANALYST 2-4 CNCRNT ANES PROC
--- NOTE | 2025-03-18 09:18 | W.PM.NB ---
Nerve Block Nerve Block Time Seen by Provider: 09:00 Date Seen: 03/18/25 Type of block requested by surgeon for post-operative analgesia: TAP Side: bilateral Time out performed: Yes Verification of patient name: Yes Verification of date of : Yes Site marking: site marked Name of person performing procedure: Gudelia Kohler Continuous monitoring Was continuous monitoring of O2 sat, B/P, cardiac catheterization technician, recorded every 15 minutes?: Yes Procedure Checklist: sterile prep, needles and gloves Ultrasound guided. Images saved: Yes Medications given in 5ml increments after negative aspiration: Marcaine %: 0.25 mL: 30 Needle gauge: 20 and Exparel mL: 10 Needle gauge: 20 Patient tolerated procedure well: Yes Block Charges Block Charge (with Pro Fee): TAP Bilateral Use of Ultrasound Machine for Block: Yes- US Guidance/pain block
[2025-03-18] MEDS: LACTATED RINGERS 1000 ML 1,000 ML 100 ML IV (09:30)
[2025-03-18] MEDS: DOCUSATE SODIUM 100 MG CAPSULE PO (11:16)
[2025-03-18] MEDS: CEFAZOLIN 2 GM in 0.9 % SODIUM CHLORIDE Mini-bag 100 ML IVPB ×2 (13:32→19:39)
--- NOTE | 2025-03-18 15:11 | P.ANES_ITS ---
Anesthesia Charges Start Date/Time Anesthesia Start Date: 03/18/25 Anesthesia Start Time: 07:19 Stop Date/Time Anesthesia Stop Date: 03/18/25 Anesthesia Stop Time: 09:07 Coding CPT Codes CPT Codes: ANESTH CS DELIVERY - 80544 ([id number]) P2 - PATIENT W/MILD SYST DISEASE, QZ - BRASS MOLDER HELPER SVC W/O RIPENING ROOM ATTENDANT BY
--- NOTE | 2025-03-18 15:11 | W.ANESCHARGE ---
Anesthesia Charges Start Date/Time Anesthesia Start Date: 03/18/25 Anesthesia Start Time: 07:19 Stop Date/Time Anesthesia Stop Date: 03/18/25 Anesthesia Stop Time: 09:07 Coding CPT Codes CPT Codes: ANESTH CS DELIVERY - 25270 ([id number]) P2 - PATIENT W/MILD SYST DISEASE, QZ - ORACLE SCM CONSULTANT SVC W/O WIRE STITCHER MACHINE BY
--- NOTE | 2025-03-18 17:16 | PM.DST ---
Transfer Discharge Sum: Prov Provider Time Seen by Provider: 17:17 Date Seen: 03/18/25 Date of admission: 03/18/25 05:46 Primary care physician: Not a Local Provider Attending physician on discharge: Dara Jones Anticipated date of transfer: 03/18/25 Receiving physician/facility: [facility] DS: Diagnosis Discharge Diagnosis (1) Unwanted fertility: Status: Acute (2) Pre-eclampsia superimposed on chronic hypertension: Status: Acute (3) , high-risk: Status: Acute (4) AMA (advanced maternal age) multigravida 35+: Status: Acute (5) Status post repeat low transverse section: Status: Acute (6) Abnormal Pap smear of cervix: Status: Acute Problem details: 02/2015: ASCUS, HPV positive 03/2015: colp: CARLOS 1 04/2016: NIL, HPV negative 03/2017: ASCUS, HPV positive 04/2017: colp: negative biopsies 05/2018: NIL, HPV negative Transfer Discharge Sum: Med Medications Active and Home Medications: Home Medications cholecalciferol (vitamin D3) 125 mcg (5,000 unit) capsule 125 mcg PO QDAY 12/19/22 [History Confirmed 03/18/25] docosahexaenoic acid 200 mg capsule ( DHA) 200 mg PO DAILY 12/19/22 [History Confirmed 03/18/25] omega [id number] oil 1,200 mg (144 mg-216 mg) capsule 1 cap PO DAILY 12/19/22 [History Confirmed 03/18/25] nifedipine 30 mg tablet,extended release 30 mg PO QDAY #30 tabs 02/19/25 [Rx Confirmed 03/18/25] Active Medications Acetaminophen (Acetaminophen 500 Mg Tablet) 1,000 mg PO Q6H PRN PRN Reason: pain/fever Acetaminophen (Acetaminophen 500 Mg Tablet) 1,000 mg PO Q6H PRN PRN Reason: Pain Calcium Carbonate (Calcium Carbonate 500 Mg Chew) 1,000 - 2,000 mg PO Q2H PRN Diphenhydramine HCl (Diphenhydramine 50 Mg/Ml Inj) 12.5 mg IVP Q4H PRN PRN Reason: Itching Stop: 03/19/25 09:19 Docusate Sodium (Docusate Sodium 100 Mg Capsule) 100 mg PO DAILY [facility] Last Admin: 03/18/25 11:16 Dose: 100 mg Lactated Ringer's (Lactated Ringers 1000 Ml) 1,000 mls @ 125 mls/hr IV .Q8H [facility] Lactated Ringer's (Lactated Ringers 1000 Ml) 1,000 mls @ 125 mls/hr IV .Q8H [facility] Last Admin: 03/18/25 14:59 Dose: Not Given Oxytocin (Oxytocin 30 Unit/500 Ml In Ns) 30 unit in 500 mls @ 300 mls/hr IVPB CONT [facility] Cefazolin Sodium 2 gm/ Sodium (Chloride) 100 mls @ 200 mls/hr IVPB Q6H [facility] Stop: 03/19/25 01:31 Last Infusion: 03/18/25 14:05 Dose: Infused Ibuprofen (Ibuprofen 600 Mg Tablet) 600 mg PO Q6H PRN PRN Reason: Pain Ketorolac Tromethamine (Ketorolac 30 Mg/Ml Inj) 30 mg IVP Q6H [facility] Stop: 03/19/25 14:31 Last Admin: 03/18/25 14:45 Dose: 30 mg Lanolin (Lanolin Cream) 1 applic TOPICAL Q1H PRN Lidocaine HCl (Lidocaine 1 % Pf 30 Ml) 30 ml INJECTION ONCE PRN Lidocaine/Aluminum/Magnesium/Simeth (Mag Hydrox/Aluminum Hyd/Simeth 30 Ml Oral.Susp) 30 ml PO Q2H PRN PRN Reason: Heartburn/Gastric Distress Magnesium Hydroxide (Magnesium Hydroxide 30 Ml Oral.Susp) 30 ml PO Q6H PRN PRN Reason: Constipation Magnesium Hydroxide (Magnesium Hydroxide 30 Ml Oral.Susp) 30 ml PO Q6H PRN PRN Reason: Constipation Misoprostol (Misoprostol 800 Mcg/4 Tablet) 800 mcg CA ONCE PRN Naloxone HCl (Naloxone 0.4 Mg/Ml Inj) 0.2 mg IVP Q5M PRN PRN Reason: Respiratory Depression Stop: 03/19/25 09:19 Naloxone HCl (Naloxone 0.4 Mg/Ml Inj) 0.1 mg IVP Q4H PRN PRN Reason: Nausea And Vomiting Stop: 03/19/25 09:19 Ondansetron HCl (Ondansetron 2 Mg/Ml Inj) 4 mg IV Q4H PRN PRN Reason: Nausea And Vomiting Ondansetron HCl (Ondansetron 2 Mg/Ml Inj) 4 mg IVP Q4H PRN PRN Reason: nausea/vomiting Ondansetron HCl (Ondansetron 2 Mg/Ml Inj) 4 mg IVP Q6H PRN PRN Reason: Nausea And Vomiting Stop: 03/19/25 09:19 Oxycodone HCl (Oxycodone 5 Mg Tablet) 5 - 10 mg PO Q4H PRN PRN Reason: Pain Oxytocin (Oxytocin 10 Unit/Ml Inj) 10 unit IM ONCE PRN Simethicone (Simethicone 80 Mg Tab.Chew) 80 - 160 mg PO Q4H PRN PRN Reason: gas Simethicone (Simethicone 80 Mg Tab.Chew) 80 - 160 mg PO Q4H PRN PRN Reason: Gas Sodium Chloride (Sodium Chloride 0.9 % (Flush) 10 Ml Syringe) 10 ml IVF .FLUSH PRN Sodium Chloride (Sodium Chloride 0.9 % (Flush) 10 Ml Syringe) 10 ml IVF .FLUSH PRN Terbutaline Sulfate (Terbutaline 1 Mg/Ml Inj) 0.25 mg SUBCUT ONCE PRN Transfer Discharge Sum: Hosp Hospital Course Hospital course: Gilda Bender is a 34 year old female is now a s/p repeat delivery and bilateral salpingectomy this morning. She was delivered at 37 weeks due to superimposed preeclampsia without severe features. Surgery was uncomplicated with QBL of 420 cc. Currently, patient had no complaints. Her pain is well controlled on oral pain medications. She is tolerating a regular diet. She has not passed flatus. She is ambulating without difficulty. Lochia is scant. She is urinating without Rodgers. Patient denies chest pain, SOB, n/v, headache, RUQ pain, vision changes, dizziness. Patient is requesting a transfer due to the being transferred to [facility] in [place] for needing continued CPAP. Care to be continued as receiving facility: Routine care status post delivery, she takes nifedipine XL 30 mg q.day for her hypertension, we had planned for 24 hours of IV antibiotic given that she had endometritis with her last 2 delivery. Current, antibiotic regime 2g of Ancef Q6H for 24 hours. Already received 2/4 doses. Time Spent with Patient Time attestation: Total time spent providing and/or coordinating transfer services: Exam Narrative: Exam Narrative: Physical exam: General: No acute distress Psych: Alert and oriented x4, full affect HEENT: Normocephalic, atraumatic Heart: Regular rate and rhythm, no murmur rub or gallop Lungs: Clear to auscultation bilaterally Abdomen: Soft, no tenderness, rebound, or guarding Incision(s): Dressing in place. Intact without breakdown or blood seeping through. Appropriately tender to palpation. Lower extremities: No edema or erythema Pelvic exam: Scant bleeding on pad. Const: Vital Signs, click to edit/add: Vital Signs - 24 hr 03/18/25 06:04 03/18/25 06:18 03/18/25 09:05 Temperature 98.2 F 97.8 F Pulse Rate 84 78 Pulse Rate [Pulse Oximeter] Pulse Rate [Right Pulse Oximeter] Respiratory Rate 16 Blood Pressure 134/81 111/70 Blood Pressure [Ri ght Arm] Pulse Oximetry 99 Oxygen Delivery Me thod Room Air 03/18/25 09:10 03/18/25 09:20 03/18/25 09:25 Temperature Pulse Rate 76 74 78 Pulse Rate [Pulse Oximeter] Pulse Rate [Right Pulse Oximeter] Respiratory Rate 16 16 16 Blood Pressure 105/66 103/64 104/67 Blood Pressure [Ri ght Arm] Pulse Oximetry 99 99 98 Oxygen Delivery Me thod Room Air Room Air Room Air 03/18/25 09:30 03/18/25 09:55 03/18/25 10:10 Temperature 97.8 F Pulse Rate 79 Pulse Rate [Pulse Oximeter] 86 87 Pulse Rate [Right Pulse Oximeter] Respiratory Rate 16 16 14 Blood Pressure 105/64 Blood Pressure [Ri ght Arm] 118/73 108/71 Pulse Oximetry 99 98 99 Oxygen Delivery Me thod Room Air 03/18/25 10:20 03/18/25 10:23 03/18/25 10:36 Temperature Pulse Rate Pulse Rate [Pulse Oximeter] Pulse Rate [Right Pulse Oximeter] 81 Respiratory Rate 14 16 Blood Pressure Blood Pressure [Ri ght Arm] 119/77 Pulse Oximetry 96 98 Oxygen Delivery Me thod 03/18/25 10:38 03/18/25 10:53 03/18/25 11:08 Temperature Pulse Rate Pulse Rate [Pulse Oximeter] Pulse Rate [Right Pulse Oximeter] 78 80 79 Respiratory Rate 14 14 14 Blood Pressure Blood Pressure [Ri ght Arm] 126/71 122/77 121/79 Pulse Oximetry 99 99 98 Oxygen Delivery Me thod 03/18/25 11:23 03/18/25 11:38 03/18/25 12:20 Temperature 98.8 F 98.8 F Pulse Rate Pulse Rate [Pulse Oximeter] Pulse Rate [Right Pulse Oximeter] 86 83 Respiratory Rate 14 12 12 Blood Pressure Blood Pressure [Ri ght Arm] 130/75 119/76 Pulse Oximetry 98 99 Oxygen Delivery Me thod 03/18/25 13:20 03/18/25 14:20 03/18/25 15:20 Temperature Pulse Rate Pulse Rate [Pulse Oximeter] Pulse Rate [Right Pulse Oximeter] Respiratory Rate 12 12 20 Blood Pressure Blood Pressure [Ri ght Arm] Pulse Oximetry Oxygen Delivery Me thod 03/18/25 15:28 03/18/25 16:20 Temperature 98.6 F Pulse Rate Pulse Rate [Pulse Oximeter] 76 Pulse Rate [Right Pulse Oximeter] Respiratory Rate 20 14 Blood Pressure Blood Pressure [Ri ght Arm] 119/73 Pulse Oximetry 99 Oxygen Delivery Me thod Room Air Transfer Discharge Sum: Data Data Completed and Pending Completed studies during hospitalization: Procedures Extraction of Products of Conception, Low, Open Approach (07/19/23) Transfer Discharge Sum: A/P Plan Cognitive capacity at transfer: - Transfer to [facility] to [place] to be closer to baby Overall status at transfer: patient is progressing back to baseline Discharge Plan Discharge Disposition: [facility] Date of Admission: 03/18/25 05:46 Primary Care Provider: Provider,Not a Local Discharge Orders: Transfer of Care to Other Hospital (ORDER); Ordered 03/18/25 Ordered By: Dara Jones
== END 2025-03-18 20:27 | disposition short-term general hospital (02) | DRG 784 ==
PROVIDERS: Admitting Provider Obstetrics & Gynecology; Visit Provider Obstetrics & Gynecology
PROC: 10D00Z1 Extraction of Products of Conception, Low, Open Approach (ICD-10-PCS; CPT 59514; principal; 2025-03-18 07:15)
DX: O34.211 Maternal care for low transverse scar from previous cesarean delivery (principal); O10.92 Unspecified pre-existing hypertension complicating childbirth; O11.4 Pre-existing hypertension with pre-eclampsia, complicating childbirth; Z30.2 Encounter for sterilization; G89.18 Other acute postprocedural pain; Z3A.37 37 weeks gestation of pregnancy; Z37.0 Single live birth
CPT/HCPCS: 01961; 36415; 64488; 76942; 82565; 82570; 84156; 84450; 84460; 84520; 85018; 85025; 86592; 86850; 86900; 86901; 94761; A4314; A9270; J0665; J0666; J0690; J1100; J1885; J2274; J2371; J2405; J2590; J7120

== ENCOUNTER 2025-03-18 20:32 | Outpatient (CLI) | payer OTHER, SELFPAY | END 2025-03-18 20:33 | disposition home or self-care (01) | PROVIDERS: Visit Provider Emergency Medicine Emergency Medical Services | DX: Z02.89 Encounter for other administrative examinations (principal) | CPT/HCPCS: A0425; A0429 ==